=== PATIENT | female | born 2000 | race Caucasian/White ===

== ENCOUNTER 2023-04-30 12:38 | Emergency (ER) | payer MEDICAID, OTHER ==
[~2023-04-30] VITALS: Ht 162.6 cm; Wt 59.0 kg
[2023-04-30] MEDS ORDERED: ALBU6.7H9 INH (14:25)
[2023-04-30] MEDS ORDERED: TRAM50TA2 PO (14:25)
[2023-04-30 15:26] VITALS: BP 121/68; TEMP 98.2; O2SAT 98
== END 2023-04-30 14:48 | disposition home or self-care (01) ==
LOC: ER 12:53
DX: M54.50 Low back pain, unspecified (principal)

== ENCOUNTER 2023-06-12 16:58 | Emergency (ER) | payer OTHER ==
[~2023-06-12] VITALS: Ht 162.6 cm; Wt 56.7 kg
[~2023-06-12 16:58] MED LIST: ALBU6.7H9 INH; TRAM50TA2 PO
[2023-06-12] MEDS ORDERED: KETOROLAC TROMETHAMINE 15 MG/ML VIAL ONE (17:27)
[2023-06-12] MEDS ORDERED: ALBU8.5H8 INH (17:39)
[2023-06-12] MEDS ORDERED: TRAM50TA2 PO (17:39)
[2023-06-12] MEDS: KETOROLAC TROMETHAMINE 15 MG/ML VIAL IM ONE (17:40)
[2023-06-12 17:51] VITALS: BP 134/74; TEMP 98.4; O2SAT 100
== END 2023-06-12 17:54 | disposition home or self-care (01) ==
LOC: ER 17:05
DX: M54.50 Low back pain, unspecified (principal)
CPT/HCPCS: 99283; 96372; J1885

== ENCOUNTER 2023-06-27 13:40 | Emergency (ER) | payer OTHER ==
[~2023-06-27] VITALS: Ht 162.6 cm; Wt 56.7 kg
[~2023-06-27 13:40] MED LIST changes: +ALBU8.5H8 INH
[2023-06-27 13:58] VITALS: BP 141/78; TEMP 98.4
[2023-06-27] MEDS ORDERED: TRAM50TA2 PO (14:34)
[2023-06-27 15:03] VITALS: O2SAT 98
== END 2023-06-27 15:04 | disposition home or self-care (01) ==
LOC: ER 13:44
DX: G89.3 Neoplasm related pain (acute) (chronic) (principal); D17.1 Benign lipomatous neoplasm of skin and subcutaneous tissue of trunk